=== PATIENT | male | born 1975 | race Caucasian/White ===

== ENCOUNTER 2016-10-26 22:54 | Observation (INO) | payer OTHER ==
[~2016-10-26] VITALS: Ht 170.2 cm; Wt 117.0 kg
--- NOTE | ~2016-10-26 | HP ---
PATIENT'S NAME: JOSE CARLOS LYNCH [facility] AGE: 40 Y [address] ROOM: [place] [id number] LOCATION: GPCU ADMIT DATE: 10/26/2016 History & Physical DISCHARGE DATE: FAMILY PHYSICIAN: PHYSICIAN, NO ATTENDING PHYSICIAN: Collins Buck DATE OF SERVICE: 10/26/2016 CHIEF COMPLAINT: Abdominal pain. HISTORY OF PRESENT ILLNESS: The patient is a 40-year-old male who began developing some significant midepigastric pain on Wednesday morning. It was fairly constant in nature, but there would be waves of more intense pressure. Initially, he thought he was constipated and tried taking some laxatives. He really did not have any success with this. The pain continued to worsen. He has had a decreased appetite and has really not eaten anything. He has been drinking fluids. He has had no emesis. He has had no similar pains like this in the past. The pain became severe enough. He went in to be evaluated this evening. Ultimately, he ended up having some lab work showing hyponatremia with a sodium of 128. It also showed a slightly elevated bilirubin of 1.8. His other liver function tests were normal. A CT scan showed evidence of cholecystitis. There is no duct dilatation. He has no history of liver disease or hepatitis. He was transferred to [facility] for further evaluation and care. PAST MEDICAL HISTORY: Chronic medical problems include hypertension and obesity. MEDICATIONS: Include lisinopril. ALLERGIES: NO KNOWN ALLERGIES. PREVIOUS SURGERIES: The patient had a laparoscopy with an open appendectomy. There was some other sort of procedure done along with the appendectomy, but he is not really detailed on what this is. FAMILY HISTORY: Noncontributory. SOCIAL HISTORY: PATIENT'S NAME: JOSE CARLOS LYNCH [facility] AGE: 40 Y [address] ROOM: [place] [id number] LOCATION: GPCU ADMIT DATE: 10/26/2016 History & Physical DISCHARGE DATE: FAMILY PHYSICIAN: PHYSICIAN, NO ATTENDING PHYSICIAN: Collins Buck The patient is and here with his . He does drink a fair amount of alcohol on weekends. No history of alcohol withdrawal. He is not a smoker. REVIEW OF SYSTEMS: Unremarkable other than the current pain and issues mentioned in the HPI. Full details of the review of systems are on the nursing assessment form. PHYSICAL EXAMINATION: VITAL SIGNS: The patient has a temperature of 99, heart rate 136, blood pressure 151/76, saturations are 94% on room air. GENERAL: The patient is a well-nourished young man. He does not appear to be in any severe distress or discomfort. He does not look chronically ill. HEENT: Pupils are equal. There is no scleral icterus. External ears, nose, and eyelids unremarkable. Oropharynx is clear without lesions or exudate. NECK: The trachea is midline. There are no masses or adenopathy. Breathing is nonlabored. LUNGS: Clear to auscultation without rales, rhonchi, or wheezing. HEART: Regular rate and rhythm. ABDOMEN: Soft. It is not distended. He does have bowel sounds present. He has severe tenderness in the midepigastric and right upper quadrant. No palpable mass. No rebound or guarding. No obvious hernias. He does have an umbilical small scar and then a larger well-healed scar in the right lower quadrant. EXTREMITIES: No peripheral edema. No cyanosis or clubbing. ASSESSMENT: A 40-year-old male with evidence of acute cholecystitis by CT scan. This was consistent with his pain. He is quite tachycardic right now. This may be due to systemic inflammatory response, though I think it is probably more just dehydration. We are going to plan on rehydrating him and starting him on some IV Mefoxin. We will plan on proceeding with the cholecystectomy once he is better hydrated, hopefully in the morning. The risks and benefits were all discussed. MD JAMIL LUGO/marine /[id number] D: T: [id number] HISTORY & PHYSICAL
--- NOTE | ~2016-10-26 | OR ---
PATIENT'S NAME: JOSE CARLOS LYNCH [facility] AGE: 40 Y [address] ROOM: [place] [id number] LOCATION: GPCU ADMIT DATE: 10/26/2016 OR/Procedure Report DISCHARGE DATE: FAMILY PHYSICIAN: PHYSICIAN, NO ATTENDING PHYSICIAN: Collins Buck SURGEON: Collins Buck MD [employer]IV[employer]ERING DRAFTER: Bebeto Roberts PA-C DATE OF PROCEDURE: 10/27/2016 PREOPERATIVE DIAGNOSIS: Acute cholecystitis. POSTOPERATIVE DIAGNOSIS: Acute gangrenous cholecystitis. PROCEDURE PERFORMED: Laparoscopic cholecystectomy. SURGEON: Collins Buck MD ANESTHESIA: General endotracheal. ESTIMATED BLOOD LOSS: 100 mL. SPECIMEN: Gallbladder. REASON FOR PROCEDURE: The patient is a 40-year-old gentleman who presented with a 2-day history of severe midepigastric and right upper quadrant pain. He was found have a markedly elevated white count. Liver function tests were unremarkable. A CT scan showed evidence of acute cholecystitis. The patient was rehydrated and taken to surgery for cholecystectomy. FINDINGS: The patient had a very difficult cholecystectomy. He had considerable fatty infiltration of the liver as well as a thick fatty omentum. There was also tense distended gangrenous gallbladder with considerable inflammation around the gallbladder. The cystic duct was normal in size. PROCEDURE IN DETAIL: The patient was taken to the operating suite and placed in the supine position. After general endotracheal anesthesia was obtained, the abdomen was prepped with ChloraPrep and sterilely draped. Marcaine was infiltrated into the incision site. A 2 cm transverse infraumbilical incision was made in his previous scar. The fascia was grasped and elevated and a Veress needle was used to obtain a pneumoperitoneum. An 11 mm bladeless trocar was then passed across the abdomen. Three 5 mm subcostal trocars were all placed under direct visualization. The gallbladder was identified. It was very tense distended gallbladder with obvious gangrenous changes, but no obvious perforation. We could not initially grasp the gallbladder and had to aspirate fluid from it. We then attempted to elevate the gallbladder, but PATIENT'S NAME: JOSE CARLOS LYNCH [facility] AGE: 40 Y [address] ROOM: [place] [id number] LOCATION: GPCU ADMIT DATE: 10/26/2016 OR/Procedure Report DISCHARGE DATE: FAMILY PHYSICIAN: PHYSICIAN, NO ATTENDING PHYSICIAN: Collins Buck between the amount of inflammation present and the considerable fatty infiltration of liver, visualization was hampered. We ended up placing an extra 5 mm trocar and a fan retractor through this to help hold some of the inflamed omentum out of the way. This certainly helped, plus we obtained a 30- degree scope to increase our visualization. We really could not see or expose the neck area of the gallbladder well though. I went ahead and decided to start at the fundus and cauterized the peritoneal surfaces, gradually freeing up the gallbladder from a top-down technique. This actually proved to be fairly effective, though it was a slow tedious dissection. Much of the back wall of the gallbladder showed ischemic gangrenous changes. Some minor bleeding points were controlled with cautery. Once we worked down towards the neck area, we were able to expose the anatomy better. We were able to dissect through some of the inflamed fatty tissue around the neck area, and eventually narrow this down to a small duct consistent with cystic duct. We were able to staple this several times and then divide it. The clips fit across the cystic duct without difficulty. There was some small pulsatile bleeding from a small artery. We were able to get a clip on this, which I assume was the cystic artery. There were no signs of any ongoing bleeding or bile leak. The gallbladder was removed from the umbilicus, though we did have to extend both the skin and fascial openings to allow removal of the inflamed gallbladder. We then washed out the right upper quadrant. All irrigation was removed. Pneumoperitoneum was evacuated. The fascia at the umbilicus was closed with [id number] Vicryl sutures. The skin incisions were all closed with subcuticular Monocryls. Benzoin, Steri-Strips, and gauze dressings were applied. POSTPROCEDURE PLAN: The patient will be sent to recovery and then back to the floor. We will gradually advance his diet as tolerated. We will keep him on a few doses of IV Mefoxin at first and continue his IV fluids. MD JAMIL LUGO/marine /[id number] d: t: 10/27/16 1616, OPERATIVE SUMMARY
[2016-10-26] MEDS ORDERED: PRINIVIL (ZESTR20 MG PO (23:12)
[2016-10-27 03:30] LABS: BASOPHIL # 0.1 K/uL (0.0-0.2); BASOPHIL % 0.3 %; HEMATOCRIT 42.2 % (37.0-53.0); HEMOGLOBIN 14.8 g/dL (12.0-17.0); IMMATURE GRANULOCYTE # 0.2 K/uL (0.0-0.3); IMMATURE GRANULOCYTE % 0.8 %; LYMPHOCYTE # 1.8 K/uL (0.8-4.0); LYMPHOCYTE % 8.6 %; MCH 29.6 pg (27.0-34.0); MCHC 35.1 gm/dL (32.0-36.5); MCV 84.4 fl (83.0-98.0); MONOCYTE # 1.6 K/uL (0.0-1.0); MONOCYTE % 7.5 %; MPV 10.3 fl (9.4-12.4); NEUTROPHIL # (ANC) 17.6 K/uL (1.4-9.0); NEUTROPHIL % 82.8 %; NRBC % 0 /100WBC (0-0.00); PLATELET COUNT 240 K/uL (150-450); RDW-CV 12.7 % (11.9-14.6)
[2016-10-27 03:32] LABS: WBC 21.2 K/uL (4.0-11.0)
[2016-10-27 03:47] LABS: ALBUMIN 2.8 gm/dL (3.5-5.0); ALK PHOS 82 IU/L (33-138); ALT 25 IU/L (12-78); AST 16 IU/L (10-40); BLOOD UREA NITROGEN 9 mg/dL (6-24); CALCIUM 8.3 mg/dL (8.5-10.5); CHLORIDE 100 mMol/L (96-110); CO2 24 mMol/L (22-32); CREATININE 0.7 mg/dL (0.6-1.3); SODIUM 134 mMol/L (135-145); TOTAL BILIRUBIN 1.1 mg/dL (0.0-1.5); TOTAL PROTEIN 7.4 g/dL (6.0-8.4)
[2016-10-28 04:27] LABS: HEMATOCRIT 37.7 % (37.0-53.0); HEMOGLOBIN 12.4 g/dL (12.0-17.0); MCH 28.9 pg (27.0-34.0); MCHC 32.9 gm/dL (32.0-36.5); MCV 87.9 fl (83.0-98.0); MPV 10.5 fl (9.4-12.4); RBC 4.29 M/uL (4.00-6.00)
[2016-10-28 04:32] LABS: WBC 16.6 K/uL (4.0-11.0)
[2016-10-28 04:44] LABS: ALBUMIN 2.4 gm/dL (3.5-5.0); ALK PHOS 84 IU/L (33-138); ALT 36 IU/L (12-78); AST 34 IU/L (10-40); BLOOD UREA NITROGEN 9 mg/dL (6-24); CALCIUM 7.9 mg/dL (8.5-10.5); CHLORIDE 105 mMol/L (96-110); CO2 23 mMol/L (22-32); CREATININE 0.6 mg/dL (0.6-1.3); SODIUM 138 mMol/L (135-145); TOTAL PROTEIN 7.2 g/dL (6.0-8.4)
[2016-10-28 04:45] LABS: TOTAL BILIRUBIN 0.5 mg/dL (0.0-1.5)
[2016-10-28] MEDS ORDERED: NORCO 5-325 TA1 EACH PO (08:05)
== END 2016-10-28 16:40 | disposition disaster alternative care site (69) ==
LOC: GPCU 22:54
PROVIDERS: ADMIT Surgery
PROC: 0FT44ZZ Resection of Gallbladder, Percutaneous Endoscopic Approach (ICD-10-PCS; principal; 2016-10-27)
DX: K80.00 Calculus of gallbladder with acute cholecystitis without obstruction (principal); I10 Essential (primary) hypertension; E66.9 Obesity, unspecified; Z68.41 Body mass index [BMI] 40.0-44.9, adult; Z79.899 Other long term (current) drug therapy; Z90.49 Acquired absence of other specified parts of digestive tract
CPT/HCPCS: J0694; J1100; J1170; J2405; J3010; J7030; J7040